=== PATIENT | female | born 1995 | race Two or more races ===

== ENCOUNTER 2018-06-21 18:03 | Emergency (ER) | payer OTHER ==
[~2018-06-21] VITALS: Ht 162.6 cm; Wt 82.6 kg
[2018-06-21 20:17] VITALS: BP 127/74
[2018-06-21] MEDS ORDERED: cefTRIAXone SOD 1,000 MG VL IM ONE (20:30)
[2018-06-21 21:16] LABS: Hepatitis B Surface Antibody Positive
[2018-06-21 22:03] LABS: Hepatitis B Surface Antigen Negative (Negative)
== END 2018-06-21 20:48 | disposition home or self-care (01) ==
LOC: ER 18:03
DX: S61.031A Puncture wound without foreign body of right thumb without damage to nail, initial encounter (principal); W46.0XXA Contact with hypodermic needle, initial encounter; Y93.89 Activity, other specified; Y99.8 Other external cause status; Y92.89 Other specified places as the place of occurrence of the external cause
CPT/HCPCS: 36415; 86703; 86706; 86803; 87340; 96372; 99283; J0696